=== PATIENT | female | born 2000 | race Caucasian/White ===

== ENCOUNTER 2024-05-11 09:10 | Emergency (ER) | payer OTHER, SELFPAY ==
[2024-05-11 09:10] VITALS: BP 126/94; PULSE 83; RESP 16; TEMP 36.3; O2SAT 100
[2024-05-11 09:16] VITALS: BP 118/84; O2SAT 99
--- NOTE | 2024-05-11 09:25 | ED_ITS ---
HPI - Nausea/Vomiting/Diarrhea General Chief complaint: Nausea/Vomiting/Diarrhea Stated complaint: abd pain Time Seen by Provider: 05/11/24 09:25 Source: patient Mode of arrival: ambulatory Limitations: no limitations History of Present Illness HPI Narrative: 23-year-old female got started on Adderall XL last week for ADHD after Ritalin did not work. She presents with -- nausea and vomiting since since this morning. She is unable to keep anything down. -- diarrhea off and on since yesterday -- abdominal pain. abdominal pain is intermittent. No exacerbating or relieving factors. No radiation of the pain. No fever or chills. Patient has an Explanon MD elicited complaint: nausea, vomiting and diarrhea Onset (ago): day(s) ( One day) Description of vomiting: watery Description of diarrhea: watery Associated nausea: Yes Associated abdominal pain: Yes Location of pain: suprapubic Radiation: other ( suprapubic) Pain consistency: intermittent Severity: moderate Quality: aching Exacerbating factors: none Relieving factors: none Associated symptoms: denies other symptoms and nausea/vomiting Related Data Home Medications ?Medication ?Instructions ?Recorded ?Confirmed ?Last Taken ?Type etonogestrel 68 mg subdermal 1 implant subdermal ONCE 03/24/24 05/04/24 Unknown History implant (Nexplanon) Allergies Allergy/AdvReac Type Severity Reaction Status Date / Time No Known Allergies Allergy Verified 05/11/24 09:17 Review of Systems 2 Review of Systems: All systems reviewed & are unremarkable except as noted in HPI and below Constitutional: Constitutional: Reports as per HPI and Reports no additional constitutional complaints Eyes: Eyes: Reports as per HPI and Reports no additional eye complaints ENT: Reports system reviewed and no additional complaints, except as documented and Reports as per HPI Cardiovascular: Cardiovascular: Reports as per HPI and Reports no additional cardiovascular complaints Respiratory: Respiratory: Reports as per HPI and Reports no additional respiratory complaints Gastrointestinal: Gastrointestinal: Reports as per HPI, Reports no additional gastrointestinal complaints, Reports diarrhea, Reports nausea and Reports vomiting Genitourinary: Genitourinary: Reports no additional female genitourinary complaints Musculoskeletal: Musculoskeletal: Reports no additional musculoskeletal complaints and Reports as per HPI Integumentary/Breasts: Skin/Breast: Reports system reviewed and no additional complaints, except as docu and Reports as per HPI Neurologic: Reports system reviewed and no additional complaints, except as documented and Reports as per HPI Psychiatric: Psychiatric: Reports no additional psychiatric complaints and Reports as per HPI Endocrine: Endocrine: Reports no additional endocrine complaints and Reports as per HPI Hematologic/Lymphatic: Hematologic/Lymphatic: Reports no additional hematologic/lymphatic complaints and Reports as per HPI Allergic/Immunologic: Allergic/Immunologic: Reports no additional allergic/immunologic complaints and Reports as per HPI REPLACED BY [facility] Family History Family History Mother Family history of blood dyscrasia Depression Family history of anemia Family history of arthritis Father Family history of alcoholism Social History Social History Smoking status: Never smoker Alcohol intake: never Exam 2 Narrative: afebrile. Pulse rate of 83. Blood pressure 126/94 Const: General: healthy appearing Orientation/consciousness: patient oriented x3 Limitations: no limitations HENMT: Head: normal to inspection Ears: external ears normal F herbert/Nose/Sinus: Normal external nose present Face and sinus: normal facial exam Mouth: Yes Normal oral and palatal mucosa present Throat: posterior oropharynx normal Eyes: Conjunctivae: conjunctivae normal Cornea: corneas normal Pupils: E qual, round and reactive pupils present EOM: EOMs intact bilaterally D irect Ophthalmoscopy: no photophobia Neck: Neck: normal visual inspection, no lymphadenopathy and no meningeal signs Chest: Chest palpation & inspection: normal inspection of the chest Resp: Effort & Inspection: normal respiratory effort Auscultation: clear to auscultation bilaterally Cardio: Rate: regular rate Rhythm: regular rhythm GI: GI Palp: Yes Soft to palpation Auscultation: normal bowel sounds O ther: suprapubic tenderness without any rigidity /rebound : General: Yes no CVA tenderness Back/Spine/Pelvis: Back: no CVA tenderness Skin: General skin exam: normal color Rashes: no rashes Wounds: no wounds Neuro: General: patient oriented x3, moves all extremities, no meningeal signs, no focal motor deficits and CN's II-XI intact bilaterally Cranial nerves: Yes Nystagmus not present Speech: normal speech Gait exam (Neuro): Normal gait present Extrem: General: normal to inspection and no clubbing, cyanosis or edema Psych: Mental Status: mental status grossly normal Affect: normal affect Attitude: cooperative Course Course Emergency Course: gastroenteritis/ Food poisoning-- blood work is unremarkable. Patient tested negative for RSV / influenza /COVID. appears to be less likely to be related to Adderall XL Vital Signs Vital signs: Vital Signs Temperature 36.3 C L 05/11/24 09:10 Pulse Rate 83 05/11/24 09:10 Respiratory Rate 16 05/11/24 09:10 Blood Pressure 126/94 H 05/11/24 09:10 Pulse Oximetry 100 05/11/24 09:10 Oxygen Delivery Room Air 05/11/24 09:10 Temperature 36.3 C L 05/11/24 09:10 Pulse Rate 83 05/11/24 09:10 Respiratory Rate 16 05/11/24 09:10 Blood Pressure 126/94 H 05/11/24 09:10 Pulse Oximetry 100 05/11/24 09:10 Oxygen Delivery Room Air 05/11/24 09:10 MDM - Nausea/Vomiting/Diarrhea MDM Narrative Medical decision making narrative: gastroenteritis Differential Diagnosis Differential diagnosis: Likely traveler's diarrhea and food poisoning Lab Data Attestation: I reviewed the patient's lab results. 05/11/24 09:50 05/11/24 09:50 Labs: Lab Results 05/11/24 05/11/24 05/11/24 Range/Units 09:40 09:50 10:25 WBC 8.9 (4.8-10.8) K/mm3 RBC 4.59 (4.20-5.40) M/mm3 Hgb 14.0 (12.0-15.0) g/dL Hct 40.4 (35.0-49.0) % MCV 88.0 (78.0-102.0) fL MCH 30.5 (27.0-31.0) pg MCHC 34.7 (32-36) g/dL RDW 12.0 (11.6-14.4) % Plt Count 286 (150-420) K/mm3 MPV 9.2 (9.2-11.8) fl Immature Gran % (Auto) 0.2 H (0.0-0.0) % Neut % (Auto) 68.3 (50.0-70.0) % Lymph % (Auto) 22.0 (18.0-42.0) % [place] % (Auto) 8.2 (2.0-11.0) % Eos % (Auto) 0.6 L (1.0-6.0) % Baso % (Auto) 0.7 (0.0-1.0) % Lymph # (Auto) 1.95 (1.10-4.50) K/mm3 [place] # (Auto) 0.73 (0.10-0.90) K/mm3 Eos # (Auto) 0.05 (0.02-0.50) K/mm3 Baso # (Auto) 0.06 (0.00-0.10) K/mm3 Abs Immat Gran (auto) 0.02 H (0.00-0.00) K/mm3 Absolute Neuts (auto) 6.04 (1.70-7.20) K/mm3 Absolute Nucleated RBC 0.00 (0.00-0.00) K/mm3 Nucleated RBC % 0.0 (0-0.0) % Sodium 140 (136-145) mmol/L Potassium 4.2 (3.5-5.1) mmol/L Chloride 104 (98-108) mmol/L Carbon Dioxide 26 (21-32) mmol/L Anion Gap 10 (4-12) mmol/L BUN 7 (7-18) mg/dL Creatinine 0.81 (0.55-1.02) mg/dL Estim Creat Clear Calc 98 ml/min Estimated GFR > 60 (59 - ) Glucose 101 H (70-99) mg/dL Calculated Osmolality 288 (285-295) mOsm/kg Lactic Acid 0.9 (0.4-2.0) mmol/L Calcium 9.0 (8.5-10.1) mg/dL Total Bilirubin 0.4 (0.00-1.00) mg/dL AST 10 L (15-37) U/L ALT 18 (14-59) U/L Alkaline Phosphatase 75 (46-116) U/L Total Protein 7.9 (6.4-8.2) g/dL Albumin 4.2 (3.4-5.0) g/dL Lipase 21 (16-77) U/L Urine Color Light yellow (Yellow) Urine Appearance Clear (Clear) Urine pH 6.5 (5.0-8.0) Ur Specific [place] 1.020 (1.010-1.020) Urine Protein Negative (Negative) Urine Glucose (UA) Negative (Negative) Urine Ketones Negative (Negative) Ur Blood (Man) Negative (Negative) Urine Nitrate Negative (Negative) Urine Bilirubin Negative (Negative) Urine Urobilinogen 0.2 (0.2-1.0) mg/dL Leukocyte Esterase Rfl Negative (Negative) DYLON/UL Influenza A (RT-PCR) Negative (Negative) Influenza B (RT-PCR) Negative (Negative) RSV (RT-PCR) Negative (Negative) SARS-CoV-2 RNA (RT-PCR) Negative (Negative) Discharge Plan Discharge Clinical Impression: Gastroenteritis Patient Disposition: Home, Self-Care Condition: Stable Instructions: Antibiotic Form, Gastroenteritis (ED) Patient Language: Ghanaian Prescriptions: New ondansetron HCl 4 mg tablet 4 mg PO Q8H PRN (Reason: nausea and vomiting) 4 Days Qty: 14 0RF No Action Nexplanon 68 mg implant 1 implant subdermal ONCE Rx Instructions: as a single dose dextroamphetamine-amphetamine [Adderall XR] 10 mg capsule,extended release 24hr 10 mg PO QAM Qty: 30 0RF Follow-up/Referrals: Delta Galeana DO [Primary Care Provider] - Time of Disposition: 10:49
[2024-05-11 09:46] VITALS: BP 113/78; O2SAT 99
--- OUTSIDE RECORDS SUMMARY | 2024-05-11 09:47 | XMS_ITS | Clinical Summary ---
Author Organization [facility] Address [address] [place] [address] Care Team Providers Care Waitstaff Name Role Phone Grey Sullivan MD Primary Care Provider [phone] Medications buPROPion HCL (Wellbutrin XL) 150 mg Extended Release 24 hour tablet Wellbutrin XL 150 mg 24 hr tablet, extended release take 3 Tablet by oral route every day Active norgestimate-et hinyl estradioL (ORTHO TRI-CYCLEN) 0.18/0.215/0.25 mg-35 mcg (28) tablet Take 1 Tablet by mouth daily. Active ondansetron (ZOFRAN ODT) 4 mg Tablet, Rapid Dissolve Take 1 Tablet (4 mg) by mouth every 8 hours as needed for Nausea/Emesis. Dissolve tablet on top of tongue, then swallow with saliva. 10 Tablet 2 Active Active Problems No known active problems Immunizations Immunization Administration Dates Next Due Influenza Seasonal Unspecified Formulation IM Social History Tobacco Use Types Packs/Day Years Used Date Smoking Tobacco: Never Smokeless Tobacco: Never Tobacco Cessation:Counseling Given: Not Answered Alcohol Use Standard Drinks/Week Comments Yes 0 (1 standard drink = 0.6 oz pur e alcohol) Comments No Sex and Gender Information Value Date Recorded Sex Assigned at Not on file Legal Sex Female 7:59 AM HOGSHEAD HEAD MATCHER Gender Identity Not on file Sexual Orientation Not on file Last Filed Vital Signs Vital Sign Reading Time Taken Comments Blood Pressure 125/83 02/20/2022 10:14 AM HOGSHEAD HEAD MATCHER Pulse 112 02/20/2022 10:14 AM HOGSHEAD HEAD MATCHER Temperature 36.7 C (98 F) 02/20/2022 10:14 AM HOGSHEAD HEAD MATCHER Respiratory Rate 18 02/20/2022 10:14 AM HOGSHEAD HEAD MATCHER Oxygen Saturation 98% 02/20/2022 10:14 AM HOGSHEAD HEAD MATCHER Inhaled Oxygen Concentration - - Weight 65.8 kg (145 lb) 02/20/2022 10:14 AM HOGSHEAD HEAD MATCHER Height 160 cm (5' 3 ) 02/20/2022 10:14 AM HOGSHEAD HEAD MATCHER Body Mass Index 25.69 02/20/2022 10:14 AM HOGSHEAD HEAD MATCHER Plan of Treatment Health Maintenance Due Date Last Done Comments HPV VACCINES (1 - 3-dose series) 2013 DTAP/TDAP/TD VACCINES (1 - Tdap) 2017 HEPATITIS B VACCINES (1 of 3 - 19+ 3-dose series) 2017 CERVICAL CANCER SCREENING 07/26/2019 INFLUENZA VACCINE (#1) 2023 01/16/2022 PNEUMOCOCCAL VACCINE 0-64 YEARS Aged Out No longer eligible based on patient's age to complete this topic Insurance ALL [employer] Care Teams Waitstaff Relationship Specialty Start Date End Date Grey Sullivan MD [address] [facility] [address] [place] [address] PCP - General 02/20/22
--- OUTSIDE RECORDS SUMMARY | 2024-05-11 09:47 | XMS_ITS | Patient Health Summary ---
Author Organization [facility] Address [address] [place] [address] Care Team Providers Care Mine Administrator Supervisor Name Role Phone Unavailable Primary Care Provider Unavailabl e Note from [facility],non-owned Affiliates and Associated Physician Practices is amultiple site organization consisting of ambulatory clinics and hospital sitesin [place], [place], [place] and [place]. This disclosure is being madepursuant to the Care Everywhere program and may not contain all information available regarding this patient. Last updated 17.[facility] Allergies No known active allergies Medications * Be aware that medications may not be up to date on this document. Alwaysverify current medications with the patient. * BuPROPion HCl (WELLBUTRIN XL PO) * Norgestimate-Eth Estradiol (SPRINTEC 28 PO) Social History Tobacco Use Types Packs/Day Years Used Date Smoking Tobacco: Never Smokeless Tobacco: Never Sex and Gender Information Value Date Recorded Sex Assigned at Not on file Gender Identity Not on file Sexual Orientation Not on file Last Filed Vital Signs Vital Sign Reading Time Taken Comments Blood Pressure 120/70 05/14/2018 4:54 PM METAL DRESSER Pulse 84 05/14/2018 4:54 PM METAL DRESSER Temperature 36.9 C (98.4 F) 05/14/2018 4:54 PM METAL DRESSER Respiratory Rate 16 05/14/2018 4:54 PM METAL DRESSER Oxygen Saturation 97% 05/14/2018 4:54 PM METAL DRESSER Inhaled Oxygen Concentration - - Weight 73.9 kg (163 lb) 05/14/2018 4:54 PM METAL DRESSER Height 162.6 cm (5' 4 ) 05/14/2018 4:54 PM METAL DRESSER Body Mass Index 27.98 05/14/2018 4:54 PM METAL DRESSER
--- OUTSIDE RECORDS SUMMARY | 2024-05-11 09:47 | XMS_ITS ---
Author Organization [facility] Address [address] [place] [address] Care Team Providers Care Edge Bonder Name Role Phone Grey Sullivan Primary Care Provider REASON FOR VISIT follow up Social History Sex Assigned At : Social History Observation Description Sex Assigned At Female Encounters Encounter Location Date Provider Diagnosis [address] [address] 01/13/2023 Grey Sullivan Plan Of Treatment No Information Progress Notes * Andrew FOSSOB: 9 (23 yo F)Acc No.[id number]:01/13/2023 UNLOCKED PROGRESS NOTE Progress Notes Patient: Zaira SEE Provider: Darnell Sullivan :2000 A ge:22 Y S ex:Female Date:01/13/2023 Address:[address] [facility] Subjective: * Chief Complaints: * 1 . Follow up. * Medical History: Objective: * Vitals: Assessment: Plan: * Treatment: * * Electronic signature of Obdulia Sullivan , [id number] on 05/11/2024 at 09:47 AM RESTAURANT ASSOCIATE Sign off status: Pending * Provider: Darnell Sullivan Date: 1 Generated for Giles addison/Jesse/eTransmitting on: 0 05/11/2024 09:47 AM RESTAURANT ASSOCIATE
--- OUTSIDE RECORDS SUMMARY | 2024-05-11 09:47 | XMS_ITS | Patient Health Record ---
Author Organization [facility] Address [address] [place] [address] Care Team Providers Care Terrazzo Supervisor Name Role Phone Grey Sullivan Primary Care Provider [phone] Allergies No Known Allergies Reason For Referral No Information Medications Medication SIG (Take, Route, Frequency, Duration) Notes Start Date End Date Status guanFACINE HCl ER 2 MG 1 tablet Orally daily 11/18 Active Fluticasone Propionate 50 MCG/ACT 1 spray in each nostril Nasally Once a day for 30 days Not-Taking Cetirizine HCl 10 MG 1 tablet Orally Onc e a day for 30 days Not-Taking Social History Tobacco Use: Social History Observation Description Date Details (start date - stop date) Never Smoker NA - NA Sex Assigned At : Social History Observation Description Sex Assigned At Female Dont use, Tobacco Use/Smoking Question Answer Notes Are you a nonsmoker Alcohol Screen (Audit-C) Question Answer Notes Did you have a drink containing alcohol in the p ast year? Yes Problems Problem Type SNOMED Code ICD Code Onset Dates Problem Status W/U Status Risk Notes Problem Tobacco user (450246703) Nicotine dependence, unspecified, uncomplicated (F17.200) Active confirmed Problem Attention deficit disorder (82374198) ADD (attention deficit disorder) (F90.0) Active confirmed Problem 58445792 Social anxiety disorder (F40.10) 2 Active confirmed Problem Migraine (63741341) Migraine (G43.909) Active confirmed Problem 62211461 Chronic fatigue (R53.82) Active confirmed Problem Seasonal allergy (628532623) Seasonal allergies (J30.2) Active confirmed Problem 009900048 Episode of recurrent major depressive disorder, unspecified depression episode severity (F33.9) 2 Active confirmed Problem 668109883 Tobacco use disorder (F17.200) Active confirmed Plan Of Treatment No Information Insurance Providers Payer Name Payer Address Payer Phone Subscriber Number Group Number Insured Name Patient Relationship to Insured Coverage Start Date Coverage End Date [employer] Sa[employer] [address] [address] [place] [address] [id number] Zaira Christie Self - patient is the insured 1 Medical (General) History Surgical History Surgery Date(Month/Year) Hospitalization History Reason Date(Month/Year)
--- OUTSIDE RECORDS SUMMARY | 2024-05-11 09:47 | XMS_ITS | Referral Summary ---
Author Organization [facility] Address [address] [place] [address] Care Team Providers Care Oil And Gas Lease Pumper Name Role Phone Unavailable Primary Care Provider Unavailabl e Source Comments [facility],non-owned Affiliates and Associated Physician Practices is amultiple site organization consisting of ambulatory clinics and hospital sitesin [place], [place], [place] and [place]. This disclosure is being madepursuant to the Care Everywhere program and may not contain all information available regarding this patient. Last updated 17.[facility] Allergies No known active allergies Medications * Be aware that medications may not be up to date on this document. Alwaysverify current medications with the patient. Medication Sig Dispensed Refills Start Date End Date Status BuPROPion HCl (WELLBUTRIN XL PO) Active Norgestimate-Eth Estradiol (SPRINTEC 28 PO) Active Social History Tobacco Use Types Packs/Day Years Used Date Smoking Tobacco: Never Smokeless Tobacco: Never Sex and Gender Information Value Date Recorded Sex Assigned at Not on file Gender Identity Not on file Sexual Orientation Not on file Last Filed Vital Signs Vital Sign Reading Time Taken Comments Blood Pressure 120/70 05/14/2018 4:54 PM GLOBAL SALES MANAGER Pulse 84 05/14/2018 4:54 PM GLOBAL SALES MANAGER Temperature 36.9 C (98.4 F) 05/14/2018 4:54 PM GLOBAL SALES MANAGER Respiratory Rate 16 05/14/2018 4:54 PM GLOBAL SALES MANAGER Oxygen Saturation 97% 05/14/2018 4:54 PM GLOBAL SALES MANAGER Inhaled Oxygen Concentration - - Weight 73.9 kg (163 lb) 05/14/2018 4:54 PM GLOBAL SALES MANAGER Height 162.6 cm (5' 4 ) 05/14/2018 4:54 PM GLOBAL SALES MANAGER Body Mass Index 27.98 05/14/2018 4:54 PM GLOBAL SALES MANAGER Plan of Treatment Not on file
--- OUTSIDE RECORDS SUMMARY | 2024-05-11 09:47 | XMS_ITS | Clinical Summary ---
Author Organization [facility] Address [address] [place] [address] Phone Care Team Providers Care Transportation Logistics Internship Name Role Phone Provider, Unknown Primary Care Provider Unavaila ble Medications Norgestimate-Eth inyl Estradiol (Tri-Sprintec) 0.18/0.215/0.25 MG-35 MCG Tablet Take 1 Tab by mouth daily. Active Active Problems No known active problems Social History Tobacco Use Types Packs/Day Years Used Date Smoking Tobacco: Never Smokeless Tobacco: Never Comments Unknown Sex and Gender Information Value Date Recorded Sex Assigned at Not on file Legal Sex Female 12:09 AM CDT Gender Identity Not on file Sexual Orientation Not on file Last Filed Vital Signs Vital Sign Reading Time Taken Comments Blood Pressure 101/68 04/15/2020 1:24 PM DEICER FINISHER Pulse 103 04/15/2020 1:24 PM DEICER FINISHER Temperature 36.9 C (98.4 F) 04/15/2020 1:24 PM DEICER FINISHER Respiratory Rate 16 04/15/2020 1:24 PM DEICER FINISHER Oxygen Saturation 98% 04/15/2020 1:24 PM DEICER FINISHER Inhaled Oxygen Concentration - - Weight 68 kg (150 lb) 04/15/2020 1:24 PM DEICER FINISHER Height 162.6 cm (5' 4 ) 04/15/2020 1:24 PM DEICER FINISHER Body Mass Index 25.75 04/15/2020 1:24 PM DEICER FINISHER Plan of Treatment Health Maintenance Due Date Last Done Comments Hepatitis C Virus (HCV) Screening 2000 Influenza Immunization (#1) 11/29/202312/29, 01/02/2017, 12/07/2009 SARS-COV-2 Immunization (2023- season) 2023 07/31/2020, 06/28/2020 Respiratory Syncytial Virus (RSV) Immunization (Adult) (1 - 1-dose 75+ series) 2073 Hepatitis B Immunization Completed 000, 2000, 2000 Pneumococcal Immunization Combined Aged Out 08/05/2000, 02/18/2000 No longer eligibl e based on patient's age to complete this topic DTaP/Tdap/Td Immunization Discontinued 2009, 08/22/2003, 10/28/1999, Additional history exists TdaP Immunization Completed 12/07/2009 Human Papillomavirus (HPV) Immunization Completed 11/06/2015, 10/12/2012 Meningococcal Immunization (ACWY) Completed 11/06/2015, 12/07/2009 Rotavirus Immunization Aged Out No lo nger eligible based on patient's age to complete this topic Care Teams Transportation Logistics Internship Relationship Specialty Start Date End Date Provider, Unknown UNKNOWN PCP - General 04/15/20
--- OUTSIDE RECORDS SUMMARY | 2024-05-11 09:47 | XMS_ITS ---
Author Organization [facility] Address [address] [place] [address] Care Team Providers Care Fur Coat Sewer Name Role Phone Grey Sullivan Primary Care Provider REASON FOR VISIT follow up Social History Sex Assigned At : Social History Observation Description Sex Assigned At Female Encounters Encounter Location Date Provider Diagnosis [address] [address] 01/20/2023 Grey Sullivan Plan Of Treatment No Information Progress Notes * Andrew FOSSOB: 9 (23 yo F)Acc No.[id number]:01/20/2023 UNLOCKED PROGRESS NOTE Progress Notes Patient: Zaira SEE Provider: Darnell Sullivan :2000 A ge:22 Y S ex:Female Date:01/20/2023 [address] [facility] Subjective: * Chief Complaints: * 1 . Follow up. * Medical History: Objective: * Vitals: Assessment: Plan: * Treatment: * * Electronic signature of Obdulia Sullivan , [id number] on 05/11/2024 at 09:46 AM COLORING CHECKER Sign off status: Pending * Provider: Darnell Sullivan Date: 1 Generated for Giles addison/Famally/eTransmitting on: 0 05/11/2024 09:46 AM COLORING CHECKER
--- OUTSIDE RECORDS SUMMARY | 2024-05-11 09:47 | XMS_ITS | Clinical Summary ---
Author Organization [facility] Address [address] [place] [address] Care Team Providers Care Glost Tile Shader Name Role Phone Unavailable Primary Care Provider Unavailabl e Source Comments [facility],non-owned Affiliates and Associated Physician Practices is amultiple site organization consisting of ambulatory clinics and hospital sitesin [place], [place], [place] and [place]. This disclosure is being madepursuant to the Care Everywhere program and may not contain all information available regarding this patient. Last updated 17.[facility] Allergies No known active allergies Medications * Be aware that medications may not be up to date on this document. Alwaysverify current medications with the patient. Medication Sig Dispensed Refills Start Date End Date Status BuPROPion HCl (WELLBUTRIN XL PO) Active Norgestimate-Eth Estradiol (SPRINTEC 28 PO) Active Family History Relation Name Status Comments Father Alive Mother Alive Social History Tobacco Use Types Packs/Day Years Used Date Smoking Tobacco: Never Smokeless Tobacco: Never Sex and Gender Information Value Date Recorded Sex Assigned at Not on file Gender Identity Not on file Sexual Orientation Not on file Last Filed Vital Signs Vital Sign Reading Time Taken Comments Blood Pressure 120/70 05/14/2018 4:54 PM PHYSICAL CHEMISTRY TEACHER Pulse 84 05/14/2018 4:54 PM PHYSICAL CHEMISTRY TEACHER Temperature 36.9 C (98.4 F) 05/14/2018 4:54 PM PHYSICAL CHEMISTRY TEACHER Respiratory Rate 16 05/14/2018 4:54 PM PHYSICAL CHEMISTRY TEACHER Oxygen Saturation 97% 05/14/2018 4:54 PM PHYSICAL CHEMISTRY TEACHER Inhaled Oxygen Concentration - - Weight 73.9 kg (163 lb) 05/14/2018 4:54 PM PHYSICAL CHEMISTRY TEACHER Height 162.6 cm (5' 4 ) 05/14/2018 4:54 PM PHYSICAL CHEMISTRY TEACHER Body Mass Index 27.98 05/14/2018 4:54 PM PHYSICAL CHEMISTRY TEACHER Plan of Treatment Health Maintenance Due Date Last Done Comments PAP SMEAR 2000 HIV SCREENING 2013 HPV VACCINE (1 - 3-dose series) 2013 CHLAMYDIA/GONORRHEA SCREENING 2014 HEPATITIS C SCREENING 07/20/2016 DTAP/TDAP/TD VACCINES (1 - Tdap) 2017 HEPATITIS B VACCINE (1 of 3 - 19+ 3-dose series) 2017 COVID-19 VACCINE (1 - 2023-2 5 season) 2023 INFLUENZA VACCINE (#1) 2023 DEPRESSION SCREENING 03/30/2024 ZOSTER VACCINE (1 of 2) 2048 HIB VACCINE Aged Out No longer eligi ble based on patient's age to complete this topic MENINGOCOCCAL (Group B) VACCINE Aged Out No longer eligible based on patient's age to complete this topic MENINGOCOCCAL VACCINE Aged Out No jana tristen eligible based on patient's age to complete this topic PNEUMOCOCCAL VACCINE Aged Out No long er eligible based on patient's age to complete this topic
--- OUTSIDE RECORDS SUMMARY | 2024-05-11 09:47 | XMS_ITS ---
Author Organization [facility] Address [address] [place] [address] Care Team Providers Care Occ Ther Name Role Phone Grey Sullivan Primary Care Provider REASON FOR VISIT 3 month f/u Social History Sex Assigned At : Social History Observation Description Sex Assigned At Female Encounters Encounter Location Date Provider Diagnosis [address] [address] 02/18/2023 Grey Sullivan Plan Of Treatment No Information Progress Notes * Andrew FOSSOB: 9 (23 yo F)Acc No.[id number]:02/18/2023 UNLOCKED PROGRESS NOTE Progress Notes Patient: Zaira SEE Provider: Darnell Sullivan :2000 A ge:22 Y S ex:Female Date:02/18/2023 Address:[address] [place], [place]-[address] Subjective: * Chief Complaints: * 1 . 3 month f/u. * Medical History: Objective: * Vitals: Assessment: Plan: * Treatment: * * Electronic signature of Obdulia Sullivan , [id number] on 05/11/2024 at 09:46 AM LONG TERM CARE PHLEBOTOMIST Sign off status: Pending * Provider: Darnell Sullivan Date: 1 04/20/2022 Generated for Giles addison/Jesse/Shaquille on: 0 05/11/2024 09:46 AM LONG TERM CARE PHLEBOTOMIST
[2024-05-11] MEDS: ONDANSETRON HCL ODT 4 MG TABLET PO (09:49)
[2024-05-11 09:55] LABS: Basophils Absolute Auto 0.06 K/mm3 (0.00-0.10); Basophils Percent Auto 0.7 % (0.0-1.0); Eosinophils Absolute Auto 0.05 K/mm3 (0.02-0.50); Eosinophils Percent Auto 0.6 % (1.0-6.0); Hematocrit 40.4 % (35.0-49.0); Immature Granulocyte Absolute 0.02 K/mm3 (0.00-0.00); Immature Granulocyte Percent A 0.2 % (0.0-0.0); Lymphocytes Absolute Auto 1.95 K/mm3 (1.10-4.50); Mean Corpuscular HGB Conc 34.7 g/dL (32-36); Mean Corpuscular Hemoglobin 30.5 pg (27.0-31.0); Mean Platelet Volume 9.2 fl (9.2-11.8); Monocytes Absolute Auto 0.73 K/mm3 (0.10-0.90); Monocytes Percent Auto 8.2 % (2.0-11.0); Neutrophils Absolute Auto 6.04 K/mm3 (1.70-7.20); Neutrophils Percent Auto 68.3 % (50.0-70.0); Platelet Count Result 286 K/mm3 (150-420); Red Blood Count 4.59 M/mm3 (4.20-5.40); White Blood Count 8.9 K/mm3 (4.8-10.8)
[2024-05-11 10:10] LABS: Alanine Aminotransferase 18 U/L (14-59); Albumin Level 4.2 g/dL (3.4-5.0); Alkaline Phosphatase 75 U/L (46-116); Anion Gap 10 mmol/L (4-12); Aspartate Amino Transferase 10 U/L (15-37); Bilirubin,Total 0.4 mg/dL (0.00-1.00); Blood Urea Nitrogen 7 mg/dL (7-18); Carbon Dioxide 26 mmol/L (21-32); Chloride 104 mmol/L (98-108); Estimated CRCL calculation 98 ml/min; Estimated Glomerular Filt Rate > 60; Glucose 101 mg/dL (70-99); Lipase 21 U/L (16-77); Osmolality Calculated 288 mOsm/kg (285-295); Potassium 4.2 mmol/L (3.5-5.1); Sodium 140 mmol/L (136-145); Total Protein 7.9 g/dL (6.4-8.2)
[2024-05-11 10:13] LABS: Lactic Acid Reflex 0.9 mmol/L (0.4-2.0)
[2024-05-11 10:33] LABS: SARS-CoV-2 RNA PCR Negative (Negative)
[2024-05-11 10:34] LABS: Influenza A QL RT-PCR Negative (Negative); Influenza B QL RT-PCR Negative (Negative); RSV RNA, RT-PCR Negative (Negative)
[2024-05-11 10:41] LABS: Add Urine Microscopic? NO; Appearance Urine Clear (Clear); Bilirubin Urine Negative (Negative); Blood Urine Negative (Negative); Color Urine Light Yellow (Yellow); Glucose Urine UA Negative (Negative); Ketones Urine Negative (Negative); Leukocyte Esterase Ur Negative LEU/UL (Negative); Nitrate Urine Negative (Negative); Protein Urine Negative (Negative); Urobilinogen Urine 0.2 mg/dL (0.2-1.0); pH Urine 6.5 (5.0-8.0)
--- OUTSIDE RECORDS SUMMARY | 2024-05-11 10:57 | XMS_ITS | Clinical Summary ---
Author Organization [facility] Address [address] [address] Care Team Providers Care Kindergarten Teacher Name Role Phone Grey Sullivan MD Primary Care Provider [phone] Medications buPROPion HCL (Wellbutrin XL) 150 mg [...] on file Legal Sex Female 7:59 AM CAPTAIN AIRLINE PILOT Gender Identity Not on file Sexual Orientation Not on file Last Filed Vital Signs Vital Sign Reading Time Taken Comments Blood Pressure 125/83 02/20/2022 10:14 AM CAPTAIN AIRLINE PILOT Pulse 112 02/20/2022 10:14 AM CAPTAIN AIRLINE PILOT Temperature 36.7 C (98 F) 02/20/2022 10:14 AM CAPTAIN AIRLINE PILOT Respiratory Rate 18 02/20/2022 10:14 AM CAPTAIN AIRLINE PILOT Oxygen Saturation 98% 02/20/2022 10:14 AM CAPTAIN AIRLINE PILOT Inhaled Oxygen Concentration - - Weight 65.8 kg (145 lb) 02/20/2022 10:14 AM CAPTAIN AIRLINE PILOT Height 160 cm (5' 3 ) 02/20/2022 10:14 AM CAPTAIN AIRLINE PILOT Body Mass Index 25.69 02/20/2022 10:14 AM CAPTAIN AIRLINE PILOT Plan of Treatment Health Maintenance Due Date Last Done Comments HPV VACCINES (1 - 3-dose series) 2013 DTAP/TDAP/TD VACCINES (1 - Tdap) 2017 HEPATITIS B VACCINES (1 of 3 - 19+ 3-dose series) 06/29 CERVICAL CANCER SCREENING 07/26/2019 INFLUENZA VACCINE (#1) 2023 01/16/2022 Insurance [employer] CHO[employer] Care Teams Kindergarten Teacher Relationship Specialty Start Date End Date Grey Sullivan MD [address] [facility] [address] [place] [address] PCP - General 02/20/22
--- OUTSIDE RECORDS SUMMARY | 2024-05-11 10:57 | XMS_ITS | Patient Health Summary ---
Author Organization [facility] Address [address] [place] [address] Care Team Providers Care Sleeper Cutter Name Role Phone Unavailable Primary Care Provider Unavailabl e Note from [facility] [employer] [facility],non-owned Affiliates and Associated Physician Practices is amultiple site organization consisting of ambulatory clinics and hospital sitesin [place], [place], [place] and [place]. This disclosure is being madepursuant to the Care Everywhere program and may not contain all information available regarding this patient. Last updated 17.[facility] [employer] Allergies No known active allergies Medications * [...] Comments Blood Pressure 120/70 05/14/2018 4:54 PM PERCHER Pulse 84 05/14/2018 4:54 PM PERCHER Temperature 36.9 C (98.4 F) 05/14/2018 4:54 PM PERCHER Respiratory Rate 16 05/14/2018 4:54 PM PERCHER Oxygen Saturation 97% 05/14/2018 4:54 PM PERCHER Inhaled Oxygen Concentration - - Weight 73.9 kg (163 lb) 05/14/2018 4:54 PM PERCHER Height 162.6 cm (5' 4 ) 05/14/2018 4:54 PM PERCHER Body Mass Index 27.98 05/14/2018 4:54 PM PERCHER
--- OUTSIDE RECORDS SUMMARY | 2024-05-11 10:57 | XMS_ITS | Referral Summary ---
Author Organization [facility] Address [address] [place] [address] Care Team Providers Care Glass Cleaner Name Role Phone Unavailable Primary Care Provider Unavailabl e Source Comments [facility],non-owned Affiliates and Associated Physician Practices is amultiple site organization consisting of ambulatory clinics and hospital sitesin [place], [place], [place] and [place]. This disclosure is being madepursuant to the Care Everywhere program and may not contain all information available regarding this patient. Last updated 17.[facility] Allergies No known active allergies Medications * [...] Comments Blood Pressure 120/70 05/14/2018 4:54 PM CLEAN RICE GRADER AND REEL TENDER Pulse 84 05/14/2018 4:54 PM CLEAN RICE GRADER AND REEL TENDER Temperature 36.9 C (98.4 F) 05/14/2018 4:54 PM CLEAN RICE GRADER AND REEL TENDER Respiratory Rate 16 05/14/2018 4:54 PM CLEAN RICE GRADER AND REEL TENDER Oxygen Saturation 97% 05/14/2018 4:54 PM CLEAN RICE GRADER AND REEL TENDER Inhaled Oxygen Concentration - - Weight 73.9 kg (163 lb) 05/14/2018 4:54 PM CLEAN RICE GRADER AND REEL TENDER Height 162.6 cm (5' 4 ) 05/14/2018 4:54 PM CLEAN RICE GRADER AND REEL TENDER Body Mass Index 27.98 05/14/2018 4:54 PM CLEAN RICE GRADER AND REEL TENDER Plan of Treatment Not on file
--- OUTSIDE RECORDS SUMMARY | 2024-05-11 10:57 | XMS_ITS | Clinical Summary ---
Author Organization [facility] Address [address] [place] [address] Care Team Providers Care Educational Advisor Name Role Phone Unavailable Primary Care Provider Unavailabl e Source Comments [facility],non-owned Affiliates and Associated Physician Practices is amultiple site organization consisting of ambulatory clinics and hospital sitesin [place], [place], [place] and [place]. This disclosure is being madepursuant to the Care Everywhere program and may not contain all information available regarding this patient. Last updated 17.[facility] Allergies No known active allergies Medications * [...] Comments Blood Pressure 120/70 05/14/2018 4:54 PM DECKHAND MAINTENANCE Pulse 84 05/14/2018 4:54 PM DECKHAND MAINTENANCE Temperature 36.9 C (98.4 F) 05/14/2018 4:54 PM DECKHAND MAINTENANCE Respiratory Rate 16 05/14/2018 4:54 PM DECKHAND MAINTENANCE Oxygen Saturation 97% 05/14/2018 4:54 PM DECKHAND MAINTENANCE Inhaled Oxygen Concentration - - Weight 73.9 kg (163 lb) 05/14/2018 4:54 PM DECKHAND MAINTENANCE Height 162.6 cm (5' 4 ) 05/14/2018 4:54 PM DECKHAND MAINTENANCE Body Mass Index 27.98 05/14/2018 4:54 PM DECKHAND MAINTENANCE Plan of Treatment Health Maintenance Due Date [...]
--- OUTSIDE RECORDS SUMMARY | 2024-05-11 10:58 | XMS_ITS | Clinical Summary ---
Author Organization [facility] Address [address] [place] [address] Phone Care Team Providers Care Color Tester Name Role Phone Provider, Unknown Primary Care [...] Comments Blood Pressure 101/68 04/15/2020 1:24 PM STORE WAREHOUSE ASSOCIATE Pulse 103 04/15/2020 1:24 PM STORE WAREHOUSE ASSOCIATE Temperature 36.9 C (98.4 F) 04/15/2020 1:24 PM STORE WAREHOUSE ASSOCIATE Respiratory Rate 16 04/15/2020 1:24 PM STORE WAREHOUSE ASSOCIATE Oxygen Saturation 98% 04/15/2020 1:24 PM STORE WAREHOUSE ASSOCIATE Inhaled Oxygen Concentration - - Weight 68 kg (150 lb) 04/15/2020 1:24 PM STORE WAREHOUSE ASSOCIATE Height 162.6 cm (5' 4 ) 04/15/2020 1:24 PM STORE WAREHOUSE ASSOCIATE Body Mass Index 25.75 04/15/2020 1:24 PM STORE WAREHOUSE ASSOCIATE Plan of Treatment Health Maintenance Due Date [...] age to complete this topic Care Teams Color Tester Relationship Specialty Start Date End Date Provider, Unknown UNKNOWN PCP - General 04/15/20
[2024-05-11 11:00] VITALS: BP 114/80; PULSE 78; RESP 18; TEMP 36.7; O2SAT 99
--- NOTE | 2024-05-11 11:04 | PC.NURSE ---
NO EMESIS NOTED DURING ED VISIT. PT TOLERATED PO CHALLENGE OF WATER.
== END 2024-05-11 11:00 | disposition home or self-care (01) ==
PROVIDERS: Emergency Provider Internal Medicine Critical Care Medicine; PCP Family Medicine
DX: K52.9 Noninfective gastroenteritis and colitis, unspecified (principal); Z79.899 Other long term (current) drug therapy; Z20.822 Contact with and (suspected) exposure to COVID-19
CPT/HCPCS: 36415; 80053; 81003; 83605; 83690; 85025; 87637; 99283; A9270